=== PATIENT | female | born 1945 | race American Indian/Alaskan Native ===

== ENCOUNTER 2018-03-16 13:33 | Emergency (ER) | payer MEDICARE ==
[~2018-03-16 13:33] MED LIST: D5W IV ONE; POTASSIUM CH IV ONE
[2018-03-16 14:34] LABS: BASO # 0.1 K/uL (0.0-0.2); BASO % 0.7 % (0.0-2.0); EOS % 0.3 % (0.0-4.0); HEMOGLOBIN 14.3 g/dL (11.0-16.0); LYMPH # 1.3 K/uL (1.0-4.3); LYMPH % 14.2 % (20.0-40.0); MEAN CELL VOLUME 94.8 fL (81.0-99.0); MEAN CORPUSCULAR HEMOGLOBIN 33.9 pg (27.0-31.0); MEAN CORPUSCULAR HGB CONC 35.7 g/dL (33.0-37.0); MEAN PLATELET VOLUME 8.5 fL (7.2-11.7); MONO # 0.9 K/uL (0.0-0.8); MONO % 10.1 % (0.0-10.0); NEUT # 6.7 K/uL (1.8-7.0); NEUT % 74.7 % (50.0-75.0); RBC 4.22 Mil/uL (3.80-5.20); RED CELL DISTRIBUTION WIDTH 13.7 % (11.5-14.5); WHITE BLOOD COUNT 8.9 K/uL (4.8-10.8)
--- NOTE | 2018-03-16 14:42 | C.PDOC ---
History Of Present Illness 72 Year old female with a previous history of cervical cancer sent to the ED due to abnormal labs. Patient is scheduled for a hysterectomy in 4 days. She recently had outpatient labs done with Dr. Earl, that showed a potassium of 2.7. Patient denies nausea, vomiting, diarrhea and fatigue. Time Seen by Provider: 03/16/18 13:55 Chief Complaint (Nursing): Abnormal Labs History Per: Patient History/Exam Limitations: no limitations Past Medical History Reviewed: Historical Data, Nursing Documentation, Vital Signs Vital Signs: Last Vital Signs Temp 98 F 03/16/18 13:36 Pulse 86 03/16/18 18:24 Resp 15 03/16/18 18:24 BP 147/83 03/16/18 18:24 Pulse Ox 98 03/16/18 18:39 - Medical History PMH: HTN, Hypothyroidism, Malignancy (Cervical Cancer) Other Surgeries: Hip Joint replacement, Right wrist surgery Family History: States: No Known Family Hx - Social History Hx Alcohol Use: No Hx Substance Use: No - Immunization History Hx Tetanus Toxoid Vaccination: No Hx Influenza Vaccination: No Hx Pneumococcal Vaccination: No Review Of Systems Except As Marked, All Systems Reviewed And Found Negative. Physical Exam - Physical Exam Appears: Non-toxic Skin: Normal Color, Warm Head: Atraumatic, Normacephalic Eye(s): bilateral: Normal Inspection, PERRL, EOMI Nose: Normal Oral Mucosa: Moist Neck: Normal, Supple Chest: Symmetrical Cardiovascular: Rhythm Regular, No Murmur Respiratory: Normal Breath Sounds, No Rales, No Rhonchi, No Wheezing Gastrointestinal/Abdominal: Soft, Other (protuberant abdomen, chronic per patient.) Extremity: Bilateral: Atraumatic, Normal Color And Temperature Neurological/Psych: Oriented x3, Normal Speech ED Course And Treatment - Laboratory Results Result Diagrams: 03/16/18 14:29 03/16/18 14:29 ECG: Interpreted By Wi ECG Rhythm: Sinus Rhythm (at 92BPM, Normal intervals, normal axis, non specific ST Changes) O2 Sat by Pulse Oximetry: 98 (RA) Pulse Ox Interpretation: Normal Medical Decision Making Medical Decision Making: IMPRESSION: HYPOKALEMIA --CMP Panel --Lipase --Magnesium --CBC W/Differential --IV Lock 3ml Labs reviewed: Potassium is 2.8 6:43 Patient given 60meq of potassium chloride. Will discharge home with prescription with potassium chloride. Patient to repeat BMP as per PMD on . Advised to return to the ER if symptoms persist or worsen. Disposition Counseled Patient/Family Regarding: Studies Performed, Diagnosis, Need For Followup, Rx Given - Disposition Referrals: Ibeth Earl MD [Staff Provider] - Disposition: HOME/ ROUTINE Disposition Time: 19:00 Condition: STABLE Additional Instructions: follow up with your doctor in 2 days take potassium, one tab tomorrow and one on Monday call to make an appointment have blood work drawn on Monday return to ER if symptoms worsens or progress Prescriptions: Potassium Chloride 10 meq PO DAILY #2 [email or web address] Instructions: Hypokalemia (DC) Forms: [facility] ([place]), General Discharge Instructions - Clinical Impression Clinical Impression: Hypokalemia - Scribe Statement The provider has reviewed the documentation as recorded by the Scribe (Karen Flannery) Provider Attestation: All medical record entries made by the Scribe were at my direction and personally dictated by me. I have reviewed the chart and agree that the record accurately reflects my personal performance of the history, physical exam, medical decision making, and the department course for this patient. I have also personally directed, reviewed, and agree with the discharge instructions and disposition.
[2018-03-16 14:59] LABS: BLOOD UREA NITROGEN 8 mg/dL (7-17); GFR AFRICAN-AMERICAN > 60; GFR NON-AFRICAN AMERICAN > 60
[2018-03-16 15:00] LABS: ALB/GLOB RATIO 1.3 (1.0-2.1); ALBUMIN 4.3 g/dL (3.5-5.0); ALT/SGPT 28 U/L (9-52); AST/SGOT 36 U/L (14-36); CALCIUM 9.2 mg/dl (8.6-10.4); LIPASE 11 U/L (23-300)
[2018-03-16] MEDS ORDERED: Potassium Chloride 20 mEq ER Tab PO STA (15:18)
[2018-03-16] MEDS ORDERED: D5W IV SCH (15:30)
[2018-03-16] MEDS ORDERED: POTASSIUM CH IV SCH (15:30)
[2018-03-16] MEDS ORDERED: Potassium Chloride 20 mEq ER Tab PO ONE (15:34)
[2018-03-16] MEDS ORDERED: D5W IV ONE (16:00)
[2018-03-16] MEDS ORDERED: POTASSIUM CH IV ONE (16:00)
[2018-03-16 19:24] VITALS: BP 135/81; PULSE 88; RESP 13; TEMP 98.4; O2SAT 97
== END 2018-03-16 19:24 | disposition home or self-care (01) ==
LOC: C.ER 13:33
DX: E87.6 Hypokalemia (principal)

== ENCOUNTER 2018-12-28 10:34 | Outpatient (CLI) | payer MEDICARE | END 2018-12-28 10:35 | disposition home or self-care (01) | LOC: C.MAMMO 10:34 ==

== ENCOUNTER 2019-02-28 09:55 | Outpatient (CLI) | payer MEDICARE | END 2019-02-28 09:56 | disposition home or self-care (01) | LOC: C.LAB 09:55 | DX: C54.1 Malignant neoplasm of endometrium (principal) ==